=== PATIENT | female | born 1995 | race Caucasian/White ===

== ENCOUNTER 2017-11-18 05:19 | Emergency (ER) | payer SELFPAY ==
[~2017-11-18] VITALS: Ht 162.6 cm; Wt 69.9 kg
[2017-11-18 05:25] VITALS: BP 116/56; PULSE 87; RESP 18; TEMP 97.8; O2SAT 100
[2017-11-18] MEDS ORDERED: AMOX875T PO (07:27)
--- NOTE | 2017-11-18 07:52 | PD ---
HPI . Earache Chief Complaint: ENT Complaint Time Seen by Provider: 07:09 Travel History International Travel<30 days: No Contact w/Intl Traveler<30days: No Traveled to known affect area: No History of Present Illness HPI This patient presents with a chief complaint of an earache and decreased hearing especially in her left ear. She rates her pain 10/10. Onset of symptoms was one day ago and have been continuous. She reports no treatment prior to arrival. No modifying factors. PFSH Past Medical History Medical History: Denies Significant Hx Diminished Hearing: No Tetanus Vaccination: Unknown Influenza Vaccination: Yes ?: Not LMP: 11/09/17 Past Surgical History Surgical History: No Previous Surgery Social History Alcohol Use: No Tobacco Use: Yes Substance Use: No Allergies-Medications (Allergen,Severity, Reaction): Coded Allergies: No Known Allergies (Verified Allergy, Unknown, 11/18/17) Reported Meds & Prescriptions Reported Meds & Active Scripts Active Amoxicillin 875 Mg Tab 875 Mg PO BID Review of Systems Except as stated in HPI: all other systems reviewed are Neg General / Constitutional: No: Fever, Chills HENT: Positive: Sore Throat, Earache Physical Exam Narrative GENERAL: Awake and alert and in no acute distress. SKIN: Warm and dry. HEAD: Normocephalic/atraumatic. EYES: Pupils are equal. Extraocular movements are intact. ENT: Both TMs are very mildly injected. The left TM appears to have fluid behind the TM. NECK: Normal range of motion. No cervical lymphadenopathy. CARDIOVASCULAR: Regular rate and rhythm. RESPIRATORY: Nonlabored respirations. MUSCULOSKELETAL: Atraumatic. NEUROLOGICAL: Nonfocal. PSYCHIATRIC: Appropriate mood and affect. Data Data Last Documented VS Vital Signs Date Time Temp Pulse Resp B/P (MAP) Pulse Ox O2 Delivery O2 Flow Rate FiO2 11/18/17 07:45 11/18/17 06:40 87 18 11/18/17 05:25 97.8 100 Orders Orders Ed Discharge Order (11/18/17 07:28) MDM Medical Decision Making Medical Screen Exam Complete: Yes Emergency Medical Condition: Yes Differential Diagnosis Differential diagnosis of ear pain includes eustachian tube dysfunction, otitis externa, otitis media, TMJ syndrome Narrative Course This patient presents complaining with a left earache. She appears to have an early otitis media. She will be discharged on amoxicillin and will be instructed to take an [id number] analgesic as needed for pain. I have also advised a decongestant. Diagnosis Primary Impression: Otitis media Qualified Codes: H66.002 - Acute suppurative otitis media without spontaneous rupture of ear drum, left ear Referrals: Primary Care Physician call for appointment Patient Instructions: General Instructions, Acetaminophen (By mouth), Ibuprofen (By mouth), Ear Infection (ED) Departure Forms: Tests/Procedures Additional Instructions: Ibuprofen or Tylenol for pain. A decongestant such as Sudafed will help. Scripts Amoxicillin (Amoxicillin) 875 Mg Tab 875 MG PO BID for Infection, #14 TAB 0 Refills Prov: Marielena Cordero MD 11/18/17 Disposition: 01 DISCHARGE HOME Condition: Stable Marielena Cordero MD Nov 18, 2017 07:52
== END 2017-11-18 07:46 | disposition home or self-care (01) ==
LOC: PHED 05:19
DX: H66.002 Acute suppurative otitis media without spontaneous rupture of ear drum, left ear (principal); Z72.0 Tobacco use
CPT/HCPCS: 99283